=== PATIENT | female | born 1950 | race Caucasian/White ===

== ENCOUNTER 2025-03-25 03:15 | Emergency (ER) | payer OTHER ==
[~2025-03-25] VITALS: Ht 165.1 cm; Wt 113.0 kg
[~2025-03-25 03:15] MED LIST: ALBU108A5 INH; ALPR1TAB7 PO; APPLCAP PO; ASCO500C49 PO; ASPI1TAB20 PO; B-CO1TAB8 PO; BACL20TA PO; CHOL1CAP58 PO; CLON0.3T PO; COEN100C15 PO; CRAN1TAB2 PO; DILT-29 PO; ENAL1TAB43 PO; FERR140T5 PO; FLAX100016 PO; FUR40T PO; GABA250S7 PO; GLIP10TA9 PO; HYDR-4072 PO; HYDR25TA4 PO; HYDR25TA5 PO; INS7030I SC; INSRTEST IV; LORA-622 PO; LOVA40TA72 PO; MAGN400T48 PO; MULTTAB99 PO; OMEG-20 PO; OMEP20TA85 PO; POTA12PO2 PO; QUET1TAB11 PO; SERT-206 PO; TRAZ-227 PO; VITA400T4 PO
--- NOTE | 2025-03-25 03:28 | ED.PDOC ---
History of Present Illness HPI Comments 74-year-old female who came to ER via EMS for back pains. Patient has a history of chronic back pain status post multiple back surgeries. States about 5 days ago, she sat improperly at the recliner, and since then she has been experiencing sharp shooting pains going down her buttocks whenever she twists her back. Denies any recent trauma to her back. Chief Complaint: Back pain Time Seen by MD: 03:28 Primary Care Provider: BLANCA Lanza Notes: Hr Operations Advisor Notes Allergies: Coded Allergies: Sulfa Drugs (Verified Allergy, Unknown, 07/24/19) Home Meds Active Scripts Pregabalin (Lyrica) 100 Mg Cap, 1 CAP PO TID PRN, #90 CAP 2 Refills Prov:DIONNE CANALES MD 03/25/25 Gabapentin (Once-Daily) (Gabapentin) 300 Mg Tab, 300 MG PO Q6HP PRN, #30 TAB Prov:DIONNE CANALES MD 03/25/25 Reported Medications Apple Cider Vinegar (Apple Cider Vinegar) 600 Mg Cap, 2400 MG PO DAILY, CAP 11/10/23 Coenzyme Q10 (Coq-10) 100 Mg Cap, 100 MG PO DAILY, CAP 24 Cholecalciferol (Vitamin D3 1.25 mg (67792 Ut)) 1 Cap Cap, 1 CAP PO DAILY, CAP 11/10/23 Linseed Oil (Flaxseed Oil) 1,000 Mg Cap, PO DAILY, CAP 11/10/23 Cranberry Extract (Cranberry) 300 Mg Tab, 300 MG PO DAILY, TAB 11/10/23 Cranberry Extract (Cranberry) 300 Mg Tab, 300 MG PO DAILY, TAB 11/10/23 B-Complex W/Biotin & Folic Aci (Super B-Complex) 1 Tab Tab, 1 TAB PO DAILY, TAB 11/10/23 [place]-3 Fatty Acids (FISH OIL) 1,000 Mg Cap, 1000 MG PO, CAP 11/10/23 Alpha Tocopheryl Acid Succinat (VITAMIN E) 400 Unit Tab, 400 UNIT PO DAILY, TAB 24 Ferrous Sulfate (Iron) 140 Mg Tab, 65 MG PO DAILY, TAB 11/10/23 Ascorbic Acid (VITAMIN C) 500 Mg Cap, 500 MG PO DAILY, CAP 11/10/23 Multiple Vitamin (Mvi Tab) 1 Tab Tb, 1 TAB PO DAILY, TAB 11/10/23 Magnesium Oxide (Magnesium) 400 Mg Tab, 400 MG PO DAILY, TAB 11/10/23 Insulin Regular (Human) (Novolin R) 100 Unit/Ml Inj, IV QIDPRN, INJ 11/10/23 Albuterol Sulfate (Albuterol Sulfate Hfa) 108 Mcg/Act Aer, 90 MCG INH Q6HPRN 2 inhalation every 6 hours 11/10/23 Trazodone Hcl (Trazodone Hcl) 50 Mg Tab, 2 TAB PO QHSP 11/10/23 Alprazolam (Alprazolam) 1 Mg Tab, 1 TAB PO DAILYP 11/10/23 Baclofen (Baclofen) 20 Mg Tab, 10 MG PO TIDPRN 11/10/23 Hydrocodone-Acetaminophen (Hydrocodone/Acetaminophen 10-325 mg) 1 Tab Tab, 1 TAB PO QIDPRN 11/10/23 Insulin Isophane & Reg (Human) (Humulin 70/30 (70-30) 100 Unit/ml) 1 Units/0.01 Ml Inj, SC 75-80 in am / 5-10 in pm 11/10/23 Clonidine Hydrochloride (Clonidine Hcl) 0.3 Mg Tab, 1 TAB PO BIDPRN 11/10/23 Sertraline Hcl (Sertraline Hcl) 50 Mg Tab, 1 TAB PO DAILY 11/10/23 Quetiapine Fumerate (QUETIAPINE FUMARATE) 25 Mg Tab, 1 TAB PO BID 11/10/23 Glipizide (Glipizide) 10 Mg Tab, 1 TAB PO BID 11/10/23 Loratadine (Claritin) 10 Mg Tab, 1 TAB PO DAILY, #30 TAB 5 Refills 11/10/23 Hctz (Hydrochlorothiazide) 25 Mg Tab, 1 TAB PO DAILY 11/10/23 Potassium Chloride (Klor-Con) 20 Meq Pow, 10 MEQ PO EOD, POW 01/14/14 Furosemide (LASIX TABLET) 40 Mg Tb, 20 MG PO DAILY 01/14/14 Gabapentin (GABAPENTIN) 250 Mg/5 Ml [place], 900 MG PO TID 01/14/14 Lovastatin (Lovastatin) 40 Mg Tab, 40 MG PO HS, TAB 01/14/14 Omeprazole (HM OMEPRAZOLE) 20 Mg Tab, 40 MG PO DAILY, TAB 01/14/14 Aspirin (Aspir-81) 81 Mg Tab, 81 MG PO DAILY, TAB 01/14/14 Diltiazem Hcl (DILTIAZEM HCL ER) 240 Mg Cap, 240 MG PO DAILY, CAP 01/14/14 Enalapril Maleate (VASOTEC TABLET) 2.5 Mg Tb, 1 TAB PO DAILY 01/14/14 Hydrochlorothiazide (Hydrochlorothiazide) 25 Mg Tab, 25 MG PO BID, TAB 01/14/14 Information Source: Patient, Semiconductor Processing Technician Mode of Arrival: EMS Severity: Moderate Timing: Days Duration: Intermittent Past Medical History PAST MEDICAL HISTORY: CHF, Depression, DM, High Lipids, HTN, TIA Past Medical History (Other): Chronic back pain Surgical History: Cholecystectomy, Hysterectomy Surgical History (Other): Back surgeries OPHTHALMIC ASSISTANT History: No Pertinent OPHTHALMIC ASSISTANT History Family History Family History: Reviewed,noncontributory to illness Social History Smoker: Non-Smoker Alcohol: Denies ETOH Use Drugs: Denies Drug Use Lives In: Home Constitutional: denies: chills, diaphoresis, fatigue, fever, malaise, sweats, weakness, others EENTM: denies: blurred vision, double vision, ear bleeding, ear discharge, ear drainage, ear pain, ear ringing, eye pain, eye redness, hearing loss, mouth pain, mouth swelling, nasal discharge, nose bleeding, nose congestion, nose pain, photophobia, tearing, throat pain, throat swelling, voice changes, others Respiratory: denies: cough, hemoptysis, orthopnea, SOB at rest, shortness of breath, SOB with excertion, stridor, wheezing, others Cardiovascular: denies: chest pain, dizzy spells, diaphoresis, Dyspnea on exertion, edema, irregular heart beat, left arm pain, lightheadedness, palpitations, PND, syncope, others Gastrointestinal: denies: abdomen distended, abdominal pain, blood streaked bowels, constipated, diarrhea, dysphagia, difficulty swallowing, hematemesis, melena, nausea, poor appetite, poor fluid intake, rectal bleeding, rectal pain, vomiting, others Genitourinary: denies: abnormal vagina bleeding, burning, dyspareunia, dysuria, flank pain, frequency, hematuria, incontinence, pain, , vagina discharge, urgency, others Neurological: denies: dizziness, fainting, headache, left sided numbness, left sided weakness, numbness, paresthesia, pre-existing deficit, right sided numbness, right sided weakness, seizure, speech problems, tingling, tremors, weakness, others Musculoskeletal: reports: back pain; denies: gout, joint pain, joint swelling, muscle pain, muscle stiffness, neck pain, others Integumetry: denies: bruises, change in color, change in hair/nails, dryness, laceration, lesions, lumps, rash, wounds, others Allergic/Immunocompromised: denies: Difficulty Healing, Frequent Infections, Hives, Itching, others Hematologic/Lymphatic: denies: anemia, blood clots, easy bleeding, easy bruising, swollen glands, others Endocrine: denies: excessive hunger, excessive sweating, excessive thirst, excessive urination, flushing, intolerance to cold, intolerance to heat, unexplained weight gain, unexplained weight loss, others Psychiatric: denies: anxiety, bipolar disorder, depression, hopeless, panic disorder, schizophrenia, sleepless, suicidal, others Physical Exam General Appearance: No Apparent Distress, Normal HEENT: Normal ENT Inspection, Pharynx Normal, TMs Normal Neck: Full Range of Motion, Non-Tender, Normal, Normal Inspection Respiratory: Chest Non-Tender, Lungs Clear, No Accessory Muscle Use, No Respiratory Distress, Normal Breath Sounds Cardiovascular: No Edema, No JVD, No Murmur, No Gallop, Normal Peripheral Pulses, Regular Rate/Rhythm Breast Exam: Deferred Gastrointestinal: No Organomegaly, Non Tender, No Pulsatile Mass, Normal Bowel Sounds, Soft Genitalia: Deferred Pelvic: Deferred Rectal: Deferred Extremities: No calf tenderness, Normal capillary refill, Normal inspection, Normal range of motion, Non-tender, No pedal edema Musculoskeletal : Apperance: Normal Neurologic: Alert, ios developer II-XII nml as Tested, No Motor Deficits, Normal Affect, Normal Mood, No Sensory Deficits Cerebellar Function: Normal Reflexes: Normal Skin: Dry, Normal Color, Warm Lymphatic: No Adenopathy Was a procedure done? Was a procedure done?: No Differential Dx Considerations may include: Musculoskeletal pain, chronic back pain X-Ray, Labs, Meds, VS Vital Signs Date Time Temp Pulse Resp B/P (MAP) Pulse Ox O2 Delivery O2 Flow Rate FiO2 03/25/25 05:49 74 16 109/75 (86) 93 03/25/25 04:35 64 20 148/74 03/25/25 04:32 79 93 Nasal Cannula* 5 40 03/25/25 04:05 77 18 149/63 03/25/25 03:59 97.7 74 16 144/54 (84) 91 97.7 03/25/25 03:20 75 03/25/25 03:15 98.6 82 18 134/74 (94) 96 98.6 Lab Test 03/25/25 04:51 03/25/25 03:35 Range/Units Troponin I High Sensitivity 13 13 </=34 ng/L White Blood Count 8.3 4.4-10.8 10^3/uL Red Blood Count 4.68 4.0-5.20 10^6/uL Hemoglobin 13.2 12.2-16.2 g/dL Hematocrit 39.5 36.0-46.0 % Mean Corpuscular Volume 84.3 80.0-100.0 fL Mean Corpuscular Hemoglobin 28.1 28.0-32.0 pg Mean Corpuscular Hemoglobin Concent 33.3 32.0-36.0 g/dL Red Cell Distribution Width 15.6 H 11.8-14.3 % Platelet Count 390 140-450 10^3/uL Mean Platelet Volume 6.8 L 6.9-10.8 fL Neutrophils (%) (Auto) 53.7 37.0-80.0 % Lymphocytes (%) (Auto) 33.8 10.0-50.0 % Monocytes (%) (Auto) 10.4 0.0-12.0 % Eosinophils (%) (Auto) 1.5 0.0-7.0 % Basophils (%) (Auto) 0.6 0.0-2.0 % Neutrophils # (Auto) 4.5 1.6-8.6 10 ^3/uL Lymphocytes # (Auto) 2.8 0.4-5.4 10 ^3/uL Monocytes # (Auto) 0.9 0-1.3 10 ^3/uL Eosinophils # (Auto) 0.1 0-0.8 10 ^3/uL Basophils # (Auto) 0 0-0.2 10 ^3/uL Nucleated Red Blood Cells 0.1 % Sodium Level 137 136-145 mmol/L Potassium Level 3.5 3.5-5.1 mmol/L Chloride Level 96 L 98-107 mmol/L Carbon Dioxide Level 33 H 20-31 mmol/L Anion Gap 8 5-15 Blood Urea Nitrogen 21 9-23 mg/dL Creatinine 1.06 H 0.550-1.02 mg/dL Glomerular Filtration Rate Calc 54 >90 mL/min BUN/Creatinine Ratio 19.8 10.0-20.0 Serum Glucose 91 74-106 mg/dL Calcium Level 9.9 8.7-10.4 mg/dL Total Bilirubin 0.3 0.2-1.0 mg/dL Aspartate Amino Transferase (AST) 14 13-40 U/L Alanine Aminotransferase (ALT) 19 7-40 U/L Alkaline Phosphatase 106 46-116 U/L Total Protein 7.5 5.7-8.2 g/dL Albumin 4.7 3.2-4.8 g/dL Lipase 36 12-53 U/L Current Medications Medications (Trade) Dose Ordered Sig/Harvey Route Start Time Stop Time Status Last Admin Ondansetron HCl (Zofran) 4 mg ONCE ONCE IV 03/25/25 03:30 03/25/25 03:31 DC 03/25/25 04:06 Hydromorphone HCl (Dilaudid Injection) 1 mg ONCE ONCE IV 03/25/25 03:30 03/25/25 03:31 DC 03/25/25 04:05 Time of 1ST Reevaluation: 03:25 Reevaluation 1ST: Unchanged Patient Education/Counseling: Diagnosis, Treatment Family Education/Counseling: No Family Present Departure 1 Departure Time of Disposition: 05:56 Impression: Primary Impression: Mid back pain Additional Impression: Radiculopathy Disposition: 01 HOME / SELF CARE / HOMELESS Condition: Stable e-Prescriptions Pregabalin (Lyrica) 100 Mg Cap 1 CAP PO TID PRN, #90 CAP 2 Refills Prov: DIONNE CANALES MD 03/25/25 Gabapentin (Once-Daily) (Gabapentin) 300 Mg Tab 300 MG PO Q6HP PRN, #30 TAB Prov: DIONNE CANALES MD 03/25/25 Discharged With: Self Critical Care Note Critical Care Time?: No Stability Stability form required: No Heart Score Heart Score: Heart Score Response (Comments) Value History N/A 0 EKG N/A 0 Age N/A 0 Risk Factors N/A 0 Troponin N/A 0 Total 0 I personally scribed for DIONNE CANALES MD ([email or web address]) on 03/25/25 at 03:28. Electronically submitted by Uriel Silva ([email or web address]). DIONNE CANALES MD March 25, 2025 03:28
[2025-03-25 03:46] LABS: Basophils # (auto) 0 10 ^3/uL (0-0.2); Basophils % (auto) 0.6 % (0.0-2.0); Eosinophils # (auto) 0.1 10 ^3/uL (0-0.8); Eosinophils % (auto) 1.5 % (0.0-7.0); Hematocrit 39.5 % (36.0-46.0); Hemoglobin 13.2 g/dL (12.2-16.2); Lymphocytes # (auto) 2.8 10 ^3/uL (0.4-5.4); Lymphocytes % (auto) 33.8 % (10.0-50.0); Mean Corpuscular Hemoglobin 28.1 pg (28.0-32.0); Mean Corpuscular Hgb Conc. 33.3 g/dL (32.0-36.0); Mean Corpuscular Volume 84.3 fL (80.0-100.0); Monocytes # (auto) 0.9 10 ^3/uL (0-1.3); Monocytes % (auto) 10.4 % (0.0-12.0); Neutrophils # (auto) 4.5 10 ^3/uL (1.6-8.6); Neutrophils % (auto) 53.7 % (37.0-80.0); Nucleated Red Blood Cells % 0.1 %; Platelet Count (auto) 390 10^3/uL (140-450); Red Blood Cells 4.68 10^6/uL (4.0-5.20); Red Cell Distribution Width 15.6 % (11.8-14.3); White Blood Cell 8.3 10^3/uL (4.4-10.8)
[2025-03-25 04:04] LABS: Alanine Aminotransferase 19 U/L (7-40); Alkaline Phosphatase 106 U/L (46-116); Anion Gap 8 (5-15); Aspartate Aminotransferase 14 U/L (13-40); BUN/Creatinine Ratio 19.8 (10.0-20.0); Blood Urea Nitrogen 21 mg/dL (9-23); Calcium 9.9 mg/dL (8.7-10.4); Glucose 91 mg/dL (74-106); Lipase 36 U/L (12-53); Sodium 137 mmol/L (136-145); Total Protein 7.5 g/dL (5.7-8.2)
[2025-03-25 04:05] LABS: Albumin 4.7 g/dL (3.2-4.8); Bilirubin, Total 0.3 mg/dL (0.2-1.0)
[2025-03-25] MEDS: HYDROmorphone HCL 2 MG/ML VL/or syr IV ONE (04:05)
[2025-03-25] MEDS: ONDANSETRON HCL 4 MG/2 ML VIAL IV ONE (04:06)
[2025-03-25 04:21] LABS: Carbon Dioxide 33 mmol/L (20-31); Chloride 96 mmol/L (98-107); Potassium 3.5 mmol/L (3.5-5.1)
[2025-03-25 04:32] VITALS: PULSE 79; O2SAT 93
--- NOTE | 2025-03-25 05:14 | ECG ---
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
--- NOTE | 2025-03-25 05:31 | DVH ---
EXAM: CT Lumbar Spine Without Intravenous Contrast CLINICAL INDICATION: severe pain TECHNIQUE: Axial computed tomography images of the lumbar spine without intravenous contrast. This CT exam was performed using one or more of the following dose reduction techniques: automated exposu re control, adjustment of the mA and/or kV according to patient size, and/or use of iterative reconst ruction technique. CONTRAST: COMPARISON: CT LS SPINE WO CONTRAST on DOS: 11/10/23 FINDINGS: VERTEBRAE: No acute fracture. DISCS/SPINAL CANAL/NEURAL FORAMINA: Moderate to severe spinal canal stenosis and neural foraminal n arrowing of L2-3 secondary to anterior spondylolisthesis, disc bulge and facet arthropathy. Status p ost posterior transpedicular fusion of L3-4. Intact hardware. Multilevel endplate degenerative segura es and disc disease of the visualized spine, most prominent at L2-3. SOFT TISSUES: Unremarkable. OTHER FINDINGS: . . IMPRESSION: 1. Moderate to severe spinal canal stenosis and neural foraminal narrowing of L2-3 secondary to ante rior spondylolisthesis, disc bulge and facet arthropathy. 2. No acute fracture. 3. Status post posterior transpedicular fusion of L3-4. Intact hardware. Multilevel endplate degene rative changes and disc disease of the visualized spine, most prominent at L2-3.
--- NOTE | 2025-03-25 05:35 | DVH ---
CHEST RADIOGRAPH Indication: pain Technique: Single frontal view of the chest was obtained Comparison: XY CHEST PORTABLE on DOS: 11/09/23 FINDINGS: Lines and Tubes: None Lungs: Patchy left basilar opacity. The right lung is clear. Pleura: No effusion. No pneumothorax. Cardiomediastinal contours: Unremarkable Bones: No acute osseous abnormality. IMPRESSION: 1. Left basilar opacity which may reflect atelectasis or pneumonia.
[2025-03-25] MEDS ORDERED: PREG100C PO (05:44)
[2025-03-25] MEDS ORDERED: GABA300T4 PO (05:44)
[2025-03-25 07:35] VITALS: BP 113/62; TEMP 97.9
[2025-03-25 08:29] VITALS: PULSE 75; RESP 13; O2SAT 92
== END 2025-03-25 09:11 | disposition home or self-care (01) ==
LOC: ER 03:15 → EDBD 03:15 → ER 09:11
DX: G89.29 Other chronic pain (principal); M54.6 Pain in thoracic spine; M54.10 Radiculopathy, site unspecified; I11.0 Hypertensive heart disease with heart failure; I50.9 Heart failure, unspecified; E11.9 Type 2 diabetes mellitus without complications; F32.A Depression, unspecified; E78.5 Hyperlipidemia, unspecified; Z79.82 Long term (current) use of aspirin; Z79.84 Long term (current) use of oral hypoglycemic drugs; Z79.899 Other long term (current) drug therapy; Z90.49 Acquired absence of other specified parts of digestive tract; Z90.710 Acquired absence of both cervix and uterus; Z88.2 Allergy status to sulfonamides
CPT/HCPCS: 36415; 71045; 72131; 80053; 83690; 84484; 85025; 93005; 96374; 96375; 99285; J1171; J2405